=== PATIENT | female | born 1980 | race Caucasian/White ===

== ENCOUNTER → 2020-04-01 | Outpatient (CLI) | payer BC ==
--- NOTE | 2020-04-01 10:01 | RAD ---
EXAM: PA and Lateral Views of the Chest DATE: 04/01/2020 12:00 AM INDICATION: Breast cancer COMPARISON: No Prior FINDINGS: Left chest port tip terminates over the proximal SVC. Heart is not enlarged. Clips are seen projecting over the right axilla and right chest wall. Lungs are clear. No pleural effusion or pneumothorax. IMPRESSION: 1. No radiographic evidence for acute cardiopulmonary process. 2. Left port tip terminates within the proximal SVC. Electronically signed by: Jeremiah Torres MD (04/01/2020 9:58 AM) [id number]
== END ==
LOC: RAD 08:44
PROVIDERS: ATTEND Radiology Radiation Oncology
DX: C50.411 Malignant neoplasm of upper-outer quadrant of right female breast (principal)
CPT/HCPCS: 71046